=== PATIENT | female | born 1995 | race Caucasian/White ===

== ENCOUNTER 2018-07-22 20:59 | Emergency (ER) | payer MEDICAID ==
[~2018-07-22] VITALS: Ht 149.9 cm; Wt 48.0 kg
[2018-07-22] MEDS ORDERED: TETANUS, DIPHTHERIA, PERTUSSIS VAC/PF 0.5ML (>7YR OLD) IM ONE (22:45)
[2018-07-22] MEDS ORDERED: IBUPROFEN 600MG TABLET PO ONE (22:45)
[2018-07-22] MEDS ORDERED: BACITRACIN ZINC OINT UDPKT TOP ONE (22:45)
[2018-07-22 23:09] VITALS: BP 118/80
== END 2018-07-22 23:10 | disposition home or self-care (01) ==
LOC: ER 20:59
DX: S01.112A Laceration without foreign body of left eyelid and periocular area, initial encounter (principal); W22.8XXA Striking against or struck by other objects, initial encounter; Y93.89 Activity, other specified; Y92.89 Other specified places as the place of occurrence of the external cause; Y99.8 Other external cause status
CPT/HCPCS: 12011; 90471; 90715; 99283